=== PATIENT | female | born 1980 | race Caucasian/White ===

== ENCOUNTER 2017-09-13 07:48 | Day surgery (SDC) | payer BC ==
[2017-09-11 17:21] LABS: BILIRUBIN,URINE NEGATIVE (NEGATIVE); BLOOD, URINE NEGATIVE (NEGATIVE); CLARITY/URINE HAZY (CLEAR); COLOR,URINE YELLOW (YELLOW); GLUCOSE,URINE NEGATIVE (NEGATIVE); KETONES,URINE NEGATIVE (NEGATIVE); LEUKOCYTE ESTERASE ,URINE 1+ (NEGATIVE); NITRITE, URINE NEGATIVE (NEGATIVE); PROTEIN URINE NEGATIVE (NEGATIVE); UROBILINOGEN,URINE 0.2 (0.2-1.0)
[2017-09-11 17:24] LABS: EOSINOPHILS # (AUTO) 0.2 K/uL (0.0-0.4); HEMOGLOBIN 11.9 g/dL (12.0-16.0); LYMPHOCYTES # (AUTO) 2.4 K/uL (1.0-5.5); MONOCYTES # (AUTO) 0.4 K/uL (0.0-1.0); NEUTROPHILS # (AUTO) 6.6 K/uL (1.8-7.7)
[2017-09-11 17:28] LABS: BASOPHILS # (AUTO) 0.1 K/uL (0.0-0.2); BASOPHILS % (AUTO) 0.6 % (0.0-2.0); EOSINOPHILS % (AUTO) 2.4 % (0.0-4.0); HEMATOCRIT 36.3 % (36-48); LYMPHOCYTES % (AUTO) 25.3 % (20.5-51.5); MEAN CORPUSCULAR HEMOGLOBIN 24 pg (27-31); MEAN CORPUSCULAR HGB CONC 33 % (32-36); MEAN CORPUSCULAR VOLUME 74 fL (79.0-98.0); MONOCYTES % (AUTO) 4.1 % (1.7-9.3); NEUTROPHILS % (AUTO) 67.6 % (40.0-70.0); PLATELET COUNT (AUTO) 342 K/uL (130-430); RED BLOOD CELL COUNT(AUTO) 4.89 MIL/uL (4.2-6.2); RED CELL DISTRIBUTION WIDTH 16.3 % (9.0-15.0); WHITE BLOOD COUNT (AUTO) 9.7 K/uL (4.8-10.8)
[2017-09-11 17:30] LABS: RBC,URINE 0-3 /HPF (0-3)
[2017-09-11 17:31] LABS: BACTERIA,URINE MODERATE /HPF (None Seen)
[2017-09-11 17:38] LABS: CALCIUM 8.7 mg/dL (8.4-11.0); CREATININE 0.6 mg/dL (0.55-1.30); POTASSIUM 3.5 mmol/L (3.5-5.1)
[2017-09-11 17:43] LABS: INR 0.9 (0.8-1.2); PROTHROMBIN TIME 9.3 SECS (9.5-12.5)
[~2017-09-13] VITALS: Ht 170.2 cm; Wt 107.0 kg
[2017-09-13] MEDS ORDERED: fentaNYL CITRATE/PF 100 MCG/2 ML AMP IVP ONE (09:57)
[2017-09-13] MEDS ORDERED: PROPOFOL 200MG/ 20ML VIAL (DIPRIVAN) IV ONE (09:57)
[2017-09-13] MEDS ORDERED: MIDAZOLAM HCL 5 MG/5 ML VIAL IVP ONE (09:57)
[2017-09-13] MEDS ORDERED: DEXAMETHASONE SOD PHOSPHATE 4 MG/ML VIAL IVP ONE (09:57)
[2017-09-13] MEDS ORDERED: SEVOFLURANE 15 MIN GAS INH ONE (09:57)
[2017-09-13] MEDS ORDERED: METOCLOPRAMIDE HCL 10 MG/2 ML VIAL IVP ONE (09:57)
[2017-09-13] MEDS ORDERED: KETOROLAC TROMETHAMINE 30 MG VIAL IVP ONE (09:57)
[2017-09-13] MEDS ORDERED: LR 1,000 ML IV ONE (10:16)
[2017-09-13] MEDS ORDERED: NALBUPHINE HCL 10 MG/ML AMP IVP PRN (10:30)
[2017-09-13] MEDS ORDERED: fentaNYL CITRATE/PF 100 MCG/2 ML AMP IVP PRN (10:30)
[2017-09-13] MEDS ORDERED: ONDANSETRON HCL 4 MG/2 ML VIAL IVP PRN ×3 (10:30→10:45)
[2017-09-13] MEDS ORDERED: KETOROLAC TROMETHAMINE 30 MG VIAL IM PRN (10:30)
[2017-09-13] MEDS ORDERED: NALOXONE HCL 0.4 MG/ML AMP (NARCAN) IVP PRN (10:30)
[2017-09-13] MEDS ORDERED: DIPHENHYDRAMINE INJ 50 MG/ML VIAL IVP PRN (10:30)
[2017-09-13] MEDS ORDERED: ePHEDrine sulfate 50 MG/ML VIAL IVP PRN (10:30)
[2017-09-13] MEDS ORDERED: PROMETHAZINE HCL 25 MG/ML AMP IM PRN (10:45)
[2017-09-13] MEDS ORDERED: OXYCODONE/ACETAMINOPHEN 5-325 TABLET PO PRN (10:45)
[2017-09-13 12:12] VITALS: BP_SYST 110
== END 2017-09-13 12:30 | disposition home or self-care (01) ==
LOC: SMU 07:48 → SDS 07:48
PROVIDERS: ATTEND Obstetrics & Gynecology
PROC: 0UDB7ZX Extraction of Endometrium, Via Natural or Artificial Opening, Diagnostic (ICD-10-PCS; 2017-09-13)
PROC: 0UB98ZX Excision of Uterus, Via Natural or Artificial Opening Endoscopic, Diagnostic (ICD-10-PCS; principal; 2017-09-13 10:00)
DX: N84.0 Polyp of corpus uteri (principal); E66.9 Obesity, unspecified; Z68.37 Body mass index [BMI] 37.0-37.9, adult; Z98.51 Tubal ligation status; Z80.3 Family history of malignant neoplasm of breast
CPT/HCPCS: 58558; 36415; 80048; 81000; 84703; 85025; 85610; 85730; 86886; 86900; 86901; 88305; C1819; J1100; J1885; J2250; J2704; J2765; J3010; J7120